=== PATIENT | male | born 1955 | race Caucasian/White ===

== ENCOUNTER 2021-05-04 12:57 | Emergency (ER) | payer MEDICAID, SELFPAY ==
[2021-05-04 13:33] VITALS: BP 112/71; PULSE 66; RESP 18; TEMP 37.4; O2SAT 90; BMI 25.1
[2021-05-04 14:36] LABS: SARS Covid-2 Antigen Positive (Negative)
--- NOTE | 2021-05-04 15:45 | XRR_ITS ---
PROCEDURE INFORMATION: Exam: XR Chest Exam date and time: 05/04/2021 3:45 PM Age: 66 years old Clinical indication: Cough and dyspnea; Additional info: Dyspnea/cough TECHNIQUE: Imaging protocol: XR of the chest. Views: 1 view. COMPARISON: No relevant prior studies available. FINDINGS: Lungs: There is some patchy infiltrate in the left mid lung worrisome for pneumonia. Visualized portions of the right lung are clear. Pleural spaces: Unremarkable. No pleural effusion. No pneumothorax. Heart/Mediastinum: The heart is within normal limits of size. Bones/joints: Unremarkable. XR/XR chest 1V portable [id number] IMPRESSION: Findings worrisome for left-sided pneumonia.
--- NOTE | 2021-05-04 16:34 | ED_ITS ---
HPI - COVID General: Chief Complaint: COVID symptoms Stated Complaint: no taste,no smell. oxygen 80 at home, poss covid Time Seen by Provider: 05/04/21 16:28 Triage information: Has fever, cough or shortness of breath . Exposure to COVID + person last 14 days COVID Results: SARS-CoV-2 Antigen (Rapid) Positive (Negative) H 05/04/21 13:42 05/04/21 Course Vital Signs: Vital signs: Vital Signs Temperature 99.3 F 05/04/21 13:33 Pulse Rate 66 05/04/21 13:33 Respiratory Rate 18 05/04/21 13:33 Blood Pressure 112/71 05/04/21 13:33 Pulse Oximetry 90 05/04/21 13:33 MDM - COVID Lab Data: Labs: Lab Results 05/04/21 Range/Units 13:42 SARS-CoV-2 Ag (Rap id) Positive H (Negative) COVID Results: SARS-CoV-2 Antigen (Rapid) Positive (Negative) H 05/04/21 13:42 05/04/21 Coding Level of Care Code ED Manager Inpatient for Storm Nguyen
--- NOTE | 2021-05-04 17:03 | W.ED.COVID ---
HPI - COVID General: Chief Complaint: COVID symptoms Stated Complaint: no taste,no smell. oxygen 80 at home, poss covid Time Seen by Provider: 05/04/21 16:28 Triage information: Has fever, cough or shortness of breath. Exposure to COVID + person last 14 days History of Present Illness: HPI Narrative: Patient comes in for illness for about 1 week. Patient has reported shortness of breath. Patient just states he cannot get his breath. Patient was concerned that he may have COVID-19. Patient is alert oriented. Patient does smoke routinely. MD complaint: has COVID symptoms Prior covid testing: no COVID 19 common symptoms: positive cough and dyspnea COVID 19 other sytmptoms: positive pleuritic pain Onset (ago): day(s) Severity: slowly worsening Pertinent comorbid conditions: COPD/respiratory disease (chronic smoker) Treatment prior to arrival: none COVID Results: SARS-CoV-2 Antigen (Rapid) Positive (Negative) H 05/04/21 13:42 05/04/21 Review of Systems General: Reports: 10 or more systems reviewed and unremarkable except in HPI and below Resp: Reports: dyspnea Physical Exam Const: COMMON NORMALS: no acute distress and patient oriented x3 GENERAL APPEARANCE: cooperative HENMT: COMMON NORMALS: normocephalic, TM's normal bilaterally and Normal external nose present HEAD & SCALP: normal to inspection and normocephalic NOSE: Normal external nose present TYMPANIC MEMBRANE: TM's normal bilaterally MOUTH: Normal oral and palatal mucosa present THROAT: posterior oropharynx normal Eye: GENERAL EYE: appearance normal, both eyes and all related structures Neck/C-Spine: COMMON NORMALS: full ROM Lymph: LYMPHATIC: no lymphadenopathy noted Chest: COMMONS NORMALS: normal inspection of the chest Resp: COMMON NORMALS: normal respiratory effort EFFORT & INSPECTION: Yes able to speak in complete sentences Cardio: COMMON NORMALS: regular rate and regular rhythm RATE: regular rate RHYTHM: regular rhythm GI: COMMON NORMALS: non-tender : COMMON NORMALS: Yes no CVA tenderness BLADDER/KIDNEY EXAM: Yes no CVA tenderness Back/Pelvis: COMMON NORMALS: no CVA tenderness and thoracic and lumbar spine normal to inspection Extremity: COMMON NORMALS: normal to inspection Neuro: COMMON NORMALS: patient oriented x3 and moves all extremities Psych: COMMON NORMALS: mental status grossly normal and cooperative Skin: COMMON NORMALS: no rashes or lesions noted GENERAL SKIN EXAM: no rashes or lesions noted Course Vital Signs: Vital signs: Vital Signs Temperature 99.3 F 05/04/21 13:33 Pulse Rate 66 05/04/21 13:33 Respiratory Rate 18 05/04/21 13:33 Blood Pressure 112/71 05/04/21 13:33 Pulse Oximetry 88 L 05/04/21 17:20 MDM - COVID MDM Narrative: Medical decision making narrative: Patient comes in today for complaints of illness for 1 week. Patient reports worsening shortness of breath. Patient was concerned that he may have COVID-19. On exam patient has crackles in the left lower lung douglas posteriorly. Skin is warm and dry. Patient has a oxygen saturation of 90% on room air. No edema is noted in the extremities. Patient does report some left side mid back pain. Differential diagnosis includes pneumonia, respiratory failure, COVID-19. Patient does have some left side pneumonia noted on chest x-ray. Patient was tested by respiratory therapy and noted to have low oxygen rate and qualifying for 2 L per nasal cannula. Patient was given a dose of dexamethasone. Patient was encouraged to drink plenty of fluids and continue with routine care. Encourage patient to stop smoking. Home oxygen order was placed. Patient reported understanding agreed to plan. COVID-19 test was positive. Lab Data: Labs: Lab Results 05/04/21 Range/Units 13:42 SARS-CoV-2 Ag (Rap id) Positive H (Negative) COVID Results: SARS-CoV-2 Antigen (Rapid) Positive (Negative) H 05/04/21 13:42 05/04/21 Discharge Plan Discharge Patient Disposition: Home Clinical Impression: Pneumonia due to COVID-19 virus Condition: Stable Prescriptions: New dexamethasone 6 mg tablet 6 mg PO DAILY Qty: 5 RF: 0 No Action Tylenol 325 mg Tablet 325 mg PO QID PRN (Reason: Pain) RF: 0 Aspir-81 81 mg Tablet,Delayed Release (Dr/Ec) 81 mg PO DAILY RF: 0 Discharge Orders: Discharge ED (Routine); Ordered 05/04/21 Ordered By: Ramsey Schaeffer Other Ambulatory Orders: DME: Oxygen (Order) Location: None Selected Ordered By: Ramsey Schaeffer Discharge Diet: Usual diet Discharge Activity: Increase activity as tolerated Patient Instructions: Viral Pneumonia (ED), Opioid Safety Activity Restrictions/Additional Instructions: Drink plenty of fluids. Use albuterol inhaler 2 puffs every 4 hours for shortness of breath, cough, chest congestion. Take dexamethasone 6 mg daily for the next 5 days. Continue with home oxygen as needed to keep oxygen saturation above 90%. Follow-up with primary care in 1 week for recheck. Return to the emergency department for worsening symptoms or new concerns. Coding Level of Care Code ED Patient Placement Coordinator for Storm Nguyen
[2021-05-04 17:20] VITALS: O2SAT 85; O2SAT 88; O2SAT 95
[2021-05-04] MEDS: albuterol 8 gm MDI 2 PUFF INHALATION (17:23)
[2021-05-04 17:28] VITALS: RESP 18; O2SAT 95
[2021-05-04] MEDS: dexamethasone 4 mg Tablet 10 MG PO (19:18)
[2021-05-04 19:19] VITALS: BP 112/69; PULSE 65; RESP 19; O2SAT 92
[2021-05-04 19:20] VITALS: O2SAT 90
== END 2021-05-04 20:10 | disposition home or self-care (01) ==
PROVIDERS: Family Medicine; Emergency Provider Nurse Practitioner Family
DX: U07.1 COVID-19 (principal); J12.82 Pneumonia due to coronavirus disease 2019; Z79.82 Long term (current) use of aspirin
CPT/HCPCS: 71045; 87426; 94640; 99283; J3535; J8540

== ENCOUNTER → 2022-03-01 15:57 | Outpatient (BNVA) | payer MEDICARE, MEDICAID, SELFPAY | PROVIDERS: PCP Nurse Practitioner; Visit Provider Nurse Practitioner | DX: R29.810 Facial weakness (principal); R53.1 Weakness; Z12.5 Encounter for screening for malignant neoplasm of prostate; E03.9 Hypothyroidism, unspecified | CPT/HCPCS: 80053; 80061; 82607; 84443; 85025; G0103 ==

== ENCOUNTER 2022-03-26 12:21 | Outpatient (CLI) | payer MEDICARE, MEDICAID, SELFPAY ==
--- NOTE | 2022-03-26 12:28 | CT_ITS ---
WS: [id number] CT HEAD TECHNIQUE: Noncontrast CT of the head obtained from the skullbase to the vertex. CLINICAL INFORMATION: R53.1 - Weakness COMPARISON: None. DLP: 1068.[address] scans at [facility] use at least one of these dose optimization techniques: automated e xposure control; mA and/or kV adjustment per patient size (includes targeted exams where dose is matc hed to clinical indication); or iterative reconstruction. FINDINGS: No evidence of intracranial hemorrhage. Diffuse loss of day-white differentiation within the RIGHT c beti radiata and deep frontal white matter suspicious for subacute ischemia. This can be further vipin luated MRI. This involves the RIGHT ocampo radiata extending into the internal capsule more prominent in the posterior limb, and thalamus. This extends laterally to the margin of the upper sylvian fissu re. Cavernous carotid calcification Paranasal sinuses and mastoid air cells are well aerated. .Normal visualized soft tissues. CT/CT head wo con* [id number] IMPRESSION: 1. No evidence of intracranial hemorrhage 2. Low-attenuation change in the RIGHT periventricular white matter involving the oacmpo radiata extending into the internal capsule more prominent in the po sterior limb with loss of normal day-white differentiation. Findings suspiciou s for subacute ischemia. This can be further evaluated with MRI. 3. No significant mass effect or midline shift. 4. Moderate small vessel changes with moderate parenchymal volume loss 5. No extra-axial fluid collections. 6. No other significant findings. Notified HAMMAD Lieberman at 03/26/2022 2:09 PM.
== END 2022-03-26 12:22 | disposition home or self-care (01) ==
LOC: RAD 12:24
PROVIDERS: PCP Nurse Practitioner; Visit Provider Nurse Practitioner
DX: R53.1 Weakness (principal); R29.810 Facial weakness
CPT/HCPCS: 70450

== ENCOUNTER → 2022-04-20 10:54 | Outpatient (BNVA) | payer MEDICARE, MEDICAID, SELFPAY | PROVIDERS: PCP Nurse Practitioner; Visit Provider Nurse Practitioner | DX: E03.8 Other specified hypothyroidism (principal); R73.9 Hyperglycemia, unspecified | CPT/HCPCS: 80048; 83036; 84443 ==

== ENCOUNTER → 2022-04-28 11:26 | Outpatient (BNVA) | payer MEDICARE, MEDICAID, SELFPAY | PROVIDERS: PCP Nurse Practitioner; Visit Provider Nurse Practitioner | DX: M54.6 Pain in thoracic spine (principal); M54.50 Low back pain, unspecified | CPT/HCPCS: 72072; 72100 ==

== ENCOUNTER → 2022-07-06 12:03 | Outpatient (BNVA) | payer MEDICARE, MEDICAID, SELFPAY | PROVIDERS: PCP Nurse Practitioner; Visit Provider Nurse Practitioner | DX: E11.65 Type 2 diabetes mellitus with hyperglycemia (principal); E03.8 Other specified hypothyroidism; M51.36 Other intervertebral disc degeneration, lumbar region; F17.200 Nicotine dependence, unspecified, uncomplicated | CPT/HCPCS: 80053; 84443; 85025 ==